=== PATIENT | male | born 1985 | race Hispanic/Latino ===

== ENCOUNTER 2019-02-11 06:03 | Inpatient (IN) | payer OTHER ==
[2019-02-11 06:28] VITALS: BMI 25.7
[2019-02-11] MEDS ORDERED: Morphine 4 MG/ML VIAL IVP STA (06:28)
[2019-02-11] MEDS ORDERED: Sodium Chloride 0.9% 1,000 ML IV STA (06:28)
[2019-02-11] MEDS ORDERED: Morphine 4 MG/ML VIAL ONE (06:30)
--- NOTE | 2019-02-11 06:44 | ED PDOC ---
Lower Extremity Pain/Injury Time Seen by Provider: 02/11/19 06:18 Chief Complaint (Provider): Lower Extremity Problem/Injury History Per: Patient History/Exam Limitations: no limitations Additional Complaint(s): 33 years old male with history of bicuspid aortic valve and vasovagal syncope presents to ER for evaluation of right ankle pain onset this morning. Patient reports he had diarrhea yesterday and states this morning he woke up to go to the bathroom and while standing he felt dizzy and lightheaded and felt like he was going to pass out. He states he tripped and rolled his ankle and believes he fractured it. Patient denies head injury, chest pain, shortness of breath or any other injuries PMD: None provided - Ankle/Foot Description Of Injury: Other (Tripped and rolled ankle) Past Medical History Reviewed: Historical Data, Nursing Documentation, Vital Signs Vital Signs: Last Vital Signs Temp 98.2 F 02/11/19 06:36 Pulse 74 02/11/19 06:36 Resp 18 02/11/19 06:36 BP 98/59 L 02/11/19 06:36 Pulse Ox 100 02/11/19 06:36 - Medical History Other PMH: bicuspid aortic valve and vasovagal syncope - Surgical History Surgical History: No Surg Hx - Family History Family History: States: Unknown Family Hx - Home Medications Home Medications: Ambulatory Orders Medication Instructions Recorded Metoprolol Tartrate [Lopressor] 25 mg PO DAILY 02/11/19 - Allergies Allergies/Adverse Reactions: Allergies Allergy/AdvReac Type Severity Reaction Status Date / Time No Known Allergies Allergy Verified 02/11/19 06:28 Review of Systems ROS Statement: Except As Marked, All Systems Reviewed And Found Negative Constitutional: Negative for: Other (Head injury) Cardiovascular: Negative for: Chest Pain Respiratory: Negative for: Shortness of Breath Musculoskeletal: Positive for: Foot Pain (Right ankle pain) Physical Exam - Reviewed Nursing Documentation Reviewed: Yes Vital Signs Reviewed: Yes - Physical Exam Appears: Positive for: No Acute Distress Head Exam: Positive for: ATRAUMATIC, NORMOCEPHALIC Skin: Positive for: Pallor Eye Exam: Positive for: Normal appearance, EOMI, PERRL ENT: Positive for: Normal ENT Inspection Neck: Positive for: Normal, Painless ROM, Supple Cardiovascular/Chest: Positive for: Regular Rate, Rhythm. Negative for: Murmur Respiratory: Positive for: Normal Breath Sounds. Negative for: Respiratory Distress Gastrointestinal/Abdominal: Positive for: Normal Exam, Soft. Negative for: Tenderness Back: Positive for: Normal Inspection. Negative for: L CVA Tenderness, R CVA Tenderness Extremity: Positive for: Deformity (Obvious to right ankle), Other (Foot externally rotated. Sensation intact, able to wiggle toes. Palpable toes). Negative for: Pedal Edema Neurological/Psych: Positive for: Awake, Alert, Oriented (x3) - Laboratory Results Result Diagrams: 02/11/19 07:02 02/11/19 07:02 - ECG O2 Sat by Pulse Oximetry: 100 (RA) Pulse Ox Interpretation: Normal Medical Decision Making Medical Decision Making: Time: 627 A/P: Ankle fracture or dislocation after presyncopal episode due to vasovagal syncope secondary to dehydration --Type and screen --EKG --BMP --Troponin --CBC --PTT --PT --Morphine 4 mg --Right ankle x-ray 699 Patient signed out to Dr. No, pending ankle x-ray, podiatry consult and labs. Scribe Attestation: Documented by Divya Gu, acting as a scribe for Brennan Little MD. Provider Scribe Attestation: All medical record entries made by the Scribe were at my direction and personally dictated by me. I have reviewed the chart and agree that the record accurately reflects my personal performance of the history, physical exam, medical decision making, and the department course for this patient. I have also personally directed, reviewed, and agree with the discharge instructions and disposition. Disposition - Clinical Impression Clinical Impression: Ankle fracture, Fracture of tibia and fibula - Patient ED Disposition Is Patient to be Admitted: Transfer of Care - Disposition Disposition: Transfer of Care Disposition Time: 07:00 Condition: FAIR Patient Signed Over To: Pete No (pendigng x-ray, podiatry and labs)
[2019-02-11 07:05] LABS: BASO % 0.3 % (0.0-2.0); EOS % 0.1 % (0.0-4.0); HEMOGLOBIN 15.4 g/dL (12.0-18.0); LYMPH # 1.3 K/uL (1.0-4.3); LYMPH % 12.4 % (20.0-40.0); MEAN CELL VOLUME 87.3 fl (80.0-94.0); MEAN CORPUSCULAR HEMOGLOBIN 29.1 pg (27.0-31.0); MEAN CORPUSCULAR HGB CONC 33.4 g/dL (33.0-37.0); MEAN PLATELET VOLUME 9.7 fl (7.2-11.7); MONO # 0.7 K/uL (0.0-0.8); MONO % 6.7 % (0.0-10.0); NEUT # 8.8 K/uL (1.8-7.0); NEUT % 80.5 % (50.0-75.0); RBC 5.28 Mil/uL (4.40-5.90); RED CELL DISTRIBUTION WIDTH 13.5 % (11.5-14.5); WHITE BLOOD COUNT 10.9 K/uL (4.8-10.8)
[2019-02-11 07:10] LABS: PROTHROMBIN TIME 11.9 Seconds (9.8-13.1)
[2019-02-11 07:13] LABS: PARTIAL THROMBOPLASTIN TIME 30.1 Seconds (25.6-37.1)
[2019-02-11 07:15] LABS: BLOOD UREA NITROGEN 19 mg/dl (9-20); CALCIUM 8.9 mg/dL (8.4-10.2); GFR NON-AFRICAN AMERICAN > 60
--- NOTE | 2019-02-11 07:15 | ED PDOC ---
- Laboratory Results Result Diagrams: 02/11/19 07:02 02/11/19 07:02 Lab Results: PT 11.9 Seconds (9.8-13.1) 02/11/19 07:02 INR 1.0 02/11/19 07:02 APTT 30.1 Seconds (25.6-37.1) 02/11/19 07:02 - ECG O2 Sat by Pulse Oximetry: 100 (RA) - Progress ED Course And Treament: 1001: Stable. AAOx3. Pt. seen by podiatry and they will take to OR. Medical Decision Making Medical Decision Making: Time: 07 --Patient is endorsed to provider by Dr. Little, pending XR right ankle, podiatry consult, and lab results. Scribe Attestation: Documented by Lisa Nunn, acting as a scribe for Pete No MD. Provider Scribe Attestation: All medical record entries made by the Scribe were at my direction and personally dictated by me. I have reviewed the chart and agree that the record accurately reflects my personal performance of the history, physical exam, m edical decision making, and the department course for this patient. I have also personally directed, reviewed, and agree with the discharge instructions and disposition. Disposition Counseled Patient/Family Regarding: Studies Performed, Diagnosis - Clinical Impression Clinical Impression: Fracture of tibia and fibula - POA Present On Arrival: Falls Or Trauma - Disposition Disposition: Admitted as In-Patient Disposition Time: 07:00 Condition: FAIR
[2019-02-11] MEDS ORDERED: Lidocaine 1% Inj (20ml) SC ONE (08:39)
[2019-02-11] MEDS ORDERED: Lidocaine 1% Inj (20ml) ONE (08:48)
--- NOTE | 2019-02-11 09:25 | CP.PCM.CON ---
History of Present Illness - History of Present Illness History of Present Illness: Podiatry consult note for Dr. Galicia, 33 years old male with history of bicuspid aortic valve and vasovagal syncope presents to ER for evaluation of dislocated right ankle. Patient is AAOx 3 and in NAD. Patient states he has had diarrhea and when he woke up to use the bathrooom this morning around 5 am immediately felt dizzy and fell. Patient states he does not recall what happened after but he must have tripped and rolled his ankle.Patient denies any other pedal complains. Denies recent f/n/v/sob. States the last time he ate or drank anything was last night. Small sips of water with imodium this morning. PMD: None provided PMhx: bicuspid aortic valve Medications: beta estelita Pshx: none Allergies: NKDA Social hx: denies smoking cigarettes, admits to drinking Past Patient History - Past Social History Smoking Status: Never Smoked - CARDIAC Other/Comment: Bicuspid aortic valve - NEUROLOGICAL Hx Vertigo: Yes - PSYCHIATRIC Hx Substance Use: No - SURGICAL HISTORY Other/Comment: Cyst removed from right shoulder and left upper inner thigh. - ANESTHESIA Hx Anesthesia: Yes Hx Anesthesia Reactions: No Meds Allergies/Adverse Reactions: Allergies Allergy/AdvReac Type Severity Reaction Status Date / Time No Known Allergies Allergy Verified 02/11/19 06:28 Physical Exam - Constitutional Appears: Well, Non-toxic, No Acute Distress - Head Exam Head Exam: ATRAUMATIC, NORMOCEPHALIC - Eye Exam Eye Exam: Normal appearance - ENT Exam ENT Exam: Mucous Membranes Moist - Respiratory Exam Respiratory Exam: Clear to Auscultation Bilateral, NORMAL BREATHING PATTERN - Extremities Exam Additional comments: neurovascular status intact pulses 2/4, mild pedal edema noted about entirety of ankle. CFT < 3 sec to all digits ortho: dislocated ankle joint is noted neuro: gross sensation is intact derm: no open lesions are noted, no erythema, no ecchymosis Results - Vital Signs Recent Vital Signs: Last Vital Signs Temp 98.2 F 02/11/19 06:36 Pulse 74 02/11/19 06:36 Resp 18 02/11/19 06:36 BP 98/59 L 02/11/19 06:36 Pulse Ox 100 02/11/19 07:15 - Labs Result Diagrams: 02/11/19 07:02 02/11/19 07:02 Labs: Laboratory Results - last 24 hr 02/11/19 02/11/19 02/11/19 06:34 06:35 07:02 WBC RBC Hgb Hct MCV MCH MCHC RDW Plt Count MPV Neut % (Auto) Lymph % (Auto) Crockett % (Auto) Eos % (Auto) Baso % (Auto) Neut # (Auto) Lymph # (Auto) Crockett # (Auto) Eos # (Auto) Baso # (Auto) PT INR APTT Sodium 136 Potassium 3.8 Chloride 101 Carbon Dioxide 25 Anion Gap 14 BUN 19 Creatinine 1.0 Est GFR ( Amer) > 60 Est GFR (Non-Af Amer) > 60 POC Glucose (mg/dL) 179 H Random Glucose 142 H Calcium 8.9 Troponin I < 0.0120 Blood Type A POSITIVE Antibody Screen Negative BBK History Checked No verified bt 02/11/19 02/11/19 02/11/19 07:02 07:02 09:16 WBC 10.9 H RBC 5.28 Hgb 15.4 Hct 46.1 MCV 87.3 MCH 29.1 MCHC 33.4 RDW 13.5 Plt Count 211 MPV 9.7 Neut % (Auto) 80.5 H Lymph % (Auto) 12.4 L Crockett % (Auto) 6.7 Eos % (Auto) 0.1 Baso % (Auto) 0.3 Neut # (Auto) 8.8 H Lymph # (Auto) 1.3 Crockett # (Auto) 0.7 Eos # (Auto) 0.0 Baso # (Auto) 0.0 PT 11.9 INR 1.0 APTT 30.1 Sodium Potassium Chloride Carbon Dioxide Anion Gap BUN Creatinine Est GFR ( Amer) Est GFR (Non-Af Amer) POC Glucose (mg/dL) 106 Random Glucose Calcium Troponin I Blood Type Antibody Screen BBK History Checked Assessment & Plan - Assessment and Plan (Free Text) Assessment: 33 y/o male with confirmed NPO status x 12 hours with right ankle fracture dislocation to go to OR this morning with Dr. Galicia for open reduction internal fixation of right ankle PLan pt seen and evaluated in ED Discussed with anesthesia Dr. Purdy and podiatric surgeon Dr. Galicia NPO status confirmed EKG in chart CT head in chart, no acute intracranial pathology Pt to go for ORIF of right ankle at this time H&P in chart
--- NOTE | 2019-02-11 09:44 | RAD ---
Date of service: 02/11/2019 PROCEDURE: Right Ankle Radiographs. HISTORY: ankle fracture COMPARISON: None available. TECHNIQUE: 3 views obtained. FINDINGS: BONES: Have oblique displaced fractures of the distal fibular diaphysis, medial malleolus and posterior malleolus. JOINTS: Ankle mortise maintained. Talar dome intact SOFT TISSUES: Bimalleolar soft tissue swelling and ankle joint effusion. OTHER FINDINGS: None. IMPRESSION: Fracture dislocation involving the distal fibular diaphysis, medial malleolus and posterior malleolus.
--- NOTE | 2019-02-11 09:50 | CT ---
Date of service: 02/11/2019 PROCEDURE: CT HEAD WITHOUT CONTRAST. HISTORY: syncopal episode with possible head injury COMPARISON: None available. TECHNIQUE: Axial computed tomography images were obtained through the head/brain without intravenous contrast. Radiation dose: Total exam DLP = 874.79 mGy-cm. This CT exam was performed using one or more of the following dose reduction techniques: Automated exposure control, adjustment of the mA and/or kV according to patient size, and/or use of iterative reconstruction technique. FINDINGS: HEMORRHAGE: No intracranial hemorrhage. BRAIN: No mass effect or edema. No atrophy or chronic microvascular ischemic changes. VENTRICLES: Unremarkable. No hydrocephalus. CALVARIUM: Unremarkable. PARANASAL SINUSES: Unremarkable as visualized. No significant inflammatory changes. MASTOID AIR CELLS: Unremarkable as visualized. No inflammatory changes. OTHER FINDINGS: None. IMPRESSION: No acute intracranial pathology.
[2019-02-11] MEDS ORDERED: Lidocaine 1% 5ml Abboject ONE (10:01)
[2019-02-11] MEDS ORDERED: Midazolam 2 MG/2 ML VIAL ONE (10:01)
[2019-02-11] MEDS ORDERED: Propofol 10 mg/ml Inj (20 ML) ONE ×2 (10:01→10:48)
[2019-02-11] MEDS ORDERED: Sevoflurane - Inhalation Anesthetic Liq (250 ml) ONE (10:06)
[2019-02-11] MEDS ORDERED: Succinylcholine Chloride 20 mg/ml Syr (5 ml) IV ONE (10:08)
[2019-02-11] MEDS ORDERED: Lidocaine 4% (Laryng-O-Jet) Kit MM ONE (10:09)
[2019-02-11] MEDS ORDERED: Ropivacaine 0.5% 30ML IV ONE (10:31)
[2019-02-11] MEDS ORDERED: Lactated Ringer's 1,000 ML IV ONE (10:45)
[2019-02-11] MEDS ORDERED: Esmolol 100 mg/10ml Inj IV ONE (11:32)
[2019-02-11] MEDS ORDERED: Bupivacaine 0.5% Inj(30mL) ONE (12:58)
[2019-02-11] MEDS ORDERED: Bupivacaine 0.5% 50 ML IJ ONE (13:00)
[2019-02-11] MEDS ORDERED: Oxycodone/Acetaminophen 5/325 mg Tab PO PRN ×2 (13:48)
--- NOTE | 2019-02-11 13:53 | PCM.SURG1 ---
Surgeon's Initial Post Op Note - Surgeon's Notes Surgeon: Dominic Galicia Receiver Stocker: Chin Mehta Patel, Sheehna, Shah Type of Anesthesia: General LMA, Local Anesthesia Administered By: Dr. Purdy Pre-Operative Diagnosis: right ankle trimalleolar fracture, dislocated Operative Findings: see dictation. injectibles: 10 cc saphenous nerve block .5% marcaine plain. materials- 2-0 vicryl, 3-0 vicryl, 4-0 monocryl. 2.7/3.5 VA LCP synthes fibular plate Post-Operative Diagnosis: tiny Operation Performed: open reduction and internal fixation right trimalleolar ankle fracture Specimen/Specimens Removed: none Estimated Blood Loss: EBL {In ML}: 25 Blood Products Given: N/A Drains Used: No Drains Post-Op Condition: Good Date of Surgery/Procedure: 02/11/19 Time of Surgery/Procedure: 13:54
[2019-02-11] MEDS ORDERED: HYDROmorphone 0.5 mg/0.5 ml ISec IVP PRN (14:01)
--- NOTE | 2019-02-11 14:06 | PCM.ANESB2 ---
Popliteal Nerve Block - Popliteal Nerve Block Date of Procedure: 02/11/19 Anesthesiologist: Dr. Purdy Pre-Procedure Diagnosis: S/P ORIF right ankle fracture Post-Procedure Diagnosis: S/P ORIF right ankle fracture Procedure Performed: Popliteal Nerve Block Right - Procedure Popliteal Nerve Block: This procedure was explained to the patient that it is for post-operative pain management. Consent was obtained after a thorough discussion with the patient regarding the benefits and possible complications of local anesthetic block of the sciatic nerve at the popliteal level. The patient was brought to the operating room and standard monitors are applied. Time-out was held with the circulating nurse to confirm the correct surgery and the appropriate block. After the surgery while still under general anesthesia, patient's operative leg was gently raised and supported and the groove in between the biceps femoris and vastus lateralis muscles was carefully palpated. The skin approximately 8cm above the popliteal crease was then marked. The ultrasound transducer was then applied to the posterior thigh approximately 8cm above the popliteal crease in the transverse plane and the sciatic nerve before its division was visualized lateral to the popliteal artery and in between the bicep femoris and semimembranosus/semitendinosus muscles. After identification, the lateral portion of the thigh was prepped with Chloraprep solution. At this point, a # 20 gauge Stimuplex insulated 4 inch needle was inserted into pre-marked area and advanced in a perpendicular direction. The needle was inserted above the ultrasound transducer in-plane towards the sciatic nerve in a [id number] direction. Needle advancement was performed carefully under direct ultrasound visualization. Nerve stimulator was used and dorsiflexion of the right foot was elicited at a current of 0.33 MA. After repeated negative aspiration, 5cc of 0.5% Ropivacaine was injected and this was flowed with 20cc of 0.5% Ropivacaine. Under ultrasound guidance the local anesthetics were observed surrounding sciatic nerve . The needle was removed intact and sterile dressing was applied. The patient tolerated the popliteal nerve block well with stable vital signs and was subsequently ttransported to recovery room.
[2019-02-11] MEDS ORDERED: Lactated Ringer's 1,000 ML IV SCH (14:15)
[2019-02-11 17:35] VITALS: BP 126/72; PULSE 82; RESP 18; TEMP 98.6
[2019-02-11 21:25] VITALS: O2SAT 100
--- NOTE | 2019-02-12 18:59 | PCM.OP ---
Operative Report - Operative Report Date of Surgery/Procedure: 02/11/19 Time of Surgery/Procedure: 11:00 Surgeon: Dr. Dominic Galicia Sand Filler: Hannah Mehta MD; PGYs:Macario Luther Dhagash Patel, Disha Shah Anesthesia/Sedation: General, regional (popliteal) nerve block, local administered by Dr. Purdy Pre-Operative Diagnosis: right dislocated trimalleolar ankle fracture Post-Operative Diagnosis: same Indication for Surgery: The patient is a 33 year-old male with the above diagnoses. The patient has exhausted conservative treatment at this time and now requires surgical intervention. The patient signed the consent after careful explanation of risks, benefits, complications and alternatives for surgical procedure. No guarantees were given nor implied. 2 grams of Ancef IV were given to the patient half an hour prior to the procedure. NPO status was confirmed prior to taking patient to the operating room. Operative Findings: The patient was brought in to the operating room and placed on the operating room table in the supine position. A well-padded pneumatic thigh tourniquet was applied in the suprapatellar position. After induction of general anesthesia, the patient's right lower extremity was then prepped and draped in usual sterile manner. An esmarch was utilized to exsanguinate the patient's right lower extremity. The pneumatic thigh tourniquet was then inflated to 350 mmHg and the procedure began. Procedure/Operation Description: Procedure #1: Open reduction with internal fixation of dislocated fibula fracture At this time, attention was directed to the lateral aspect of the right ankle where a dislocated fibular fracture was present. At this time, via the use of a #15 blade, an approximately 10 cm in length linear incision was created over the lateral aspect of the fibula of the right lower extremity. The incision was carried from proximal to distal to the distal tip of the lateral malleolus. The incision was deepened through subcutaneous tissues, with all neurovascular structures retracted, ligated and bovied as necessary. A wet sponge was used to evacuate all hematoma from the fracture site. Next, a sterile 15 blade was used to make a linear incision along the central aspect of the fibula to incise the periosteum. Using a Tariq elevator, the periosteum was dissected free from its osseous attachments and reflected anteriorly and posteriorly. An oblique fracture was noted at this time, oriented from proximal posterior to distal an terior. Upon dissection of the surrounding soft tissue from the fracture site, the fracture fragment was distracted distally and a bone curette was utilized to clean and remove hemorrhagic tissue and coagulated blood from the fracture site. The surgical site was then copiously irrigated with normal sterile. At this time via the use of a bone clamp and distal and proximal distraction, the fracture was placed in an anatomical corrected position with noted increased length to the fibula and uatsdin of the ankle mortise. Fluoroscopy was used to confirm the appropriate position and length of the fibula. At this time, two 3.5mm Synthes cortical screws (18mm, 20mm) were placed across the fracture site in lag technique in order to allow for interfragmentary screw fixation. Upon completion of this procedure, the bone clamped was removed. It was noted that good fixation had been achieved across the fracture site. At this time, a Synthes VA-LCP 2.7/3.5mm fibular plate was utilized at the anterolateral aspect of the which was fixated via the use of eight 2.7mm locking screws (14mmx2;16mmx5; 20mm) and one 3.5 mm (18mm) cortical screw. Upon completion of the fibular reduction and fixation, the surgical site was copiously irrigated with normal sterile saline. The periosteum was reapproximated with 3-0 Vicryl in a simple suture pattern. The subcutaneous tissues were reapproximated with 4-0 Vicryl in a running interlocking suture pattern. The skin was reapproximated and coapted with 4-0 Monocryl in a continuous running suture technique. Procedure #2: Open reduction and internal fixation of medial malleolar fracture At this time, attention was directed to the medial aspect of the right ankle at the level of the medial malleolus, where a displaced distal malleolar fracture was present. At this time, via the use of a #15 blade, a 5cm linear longitudinal incision was created from superior to inferior. The incision was deepened through subcutaneous tissues using dissecting scissors and a hemostat. Care was taken to identify and retract all vital neurovascular structures. A sterile 15 blade was used to reflect the periosteum off the bone in a distal direction, strictly at the site of the fracture. At this time, the medial malleolus was placed in an anatomical reduced position and temporarily fixated via the use of the 4.0 mm cannulated screw guide wire. A second K-wire was placed posterior to the initial wire to stabilize the fracture site. C-arm was utilized at this time to insure adequate positioning of the medial malleolar guide wires. It was noted that good position was present. At this time, via the use of AO technique, a Synthes 4.0 mm x 48 mm cannulated screw was inserted across the medial malleolar fracture site. Upon removal of the guidewires, it was noted that good stable fixation had been achieved with the 3.5 mm screw. The surgical site was then copiously irrigated with normal sterile saline. The periosteum was reapproximated with 3-0 Vicryl in a simple suture pattern. The subcutaneous tissues were reapproximated with 4-0 Vicryl in a running interlocking suture pattern. The skin was reapproximated and coapted with 4-0 Monocryl in a continuous running suture technique. Procedure #3: Open reduction and internal fixation of posterior malleolus fracture Attention was then directed to the anterior aspect of the right ankle. It is of not on the lateral fluoroscopic image that there was evidence of posterior malleolar fracture fragment with mild posterior displacement of the fracture fragment. Using a sterile 15 blade, a linear 1cm longitudinal incision was made over the distal anterior tibia. The incision was deepened using blunt dissection down to the level of subcutaneous tissues. At this time, a guidewire from the Synthes 4.0 cannulated screw set was driven from anterior to posterior. The position was confirmed under fluoroscopy and noted to adequately capture the fracture fragment. At this time, a 4.0 short threaded 38 mm Synthes cannulated screw was inserted under AO technique in lag fashion. Position of the screw was confirmed under fluoroscopy and noted to be in good alignment and across the fracture site. The incision site was copiously irrigated with sterile saline. The subcutaneous tissues were reapproximated with 4-0 Vicryl in a running interlocking suture pattern. The skin was reapproximated and coapted with 4-0 Monocryl in a continuous running suture technique. Postoperative bandages included steri strips, saline-soaked gauze, 4x4s, leandra, kerlix, Webril and a bi-valved fiberglass cast. It is of note that Dr. Hannah Mehta's expertise and assistance was vital to the successful reduction and repair of this patient's trimalleolar ankle fracture. His presence was needed to ensure the best possible surgical outcome. Estimated Blood Loss: 25 mL Complications: None Discharge & Condition: The patient tolerated the anesthesia and procedure well and was escorted to the recovery room with vital signs stable and neurovascular status intact to the right lower extremity. This patient will follow up with Dr. Galicia in his office on an outpatient basis. He is to remain non-weightbearing to the right lower extremity with bi-valved cast and crutches.
--- NOTE | 2019-02-12 21:28 | CARD ---
APPROVED REPORT Date of service: 02/11/2019 EKG Measurement Heart [id number] <Conclusion> Normal sinus rhythm Normal Electrocardiogram
--- NOTE | 2019-02-13 08:38 | RAD ---
Date of service: 02/11/2019 PROCEDURE: Intraoperative Fluoroscopy. HISTORY: RIGHT ANKLE FINDINGS: Fluoroscopic assistance was provided for ORIF distal fibular/lateral malleolar and medial malleolar fractures. Please refer to the operative report from RUDI Daley. 32 sec of fluoro time was utilized with a cumulative radiation dose of 0.72 mGy.
== END 2019-02-11 19:10 | disposition home or self-care (01) | DRG 493 ==
LOC: H.ER 06:03 → H.ERHOLD 10:01 → H.MEDSURG1 15:35
PROVIDERS: ADMIT Podiatrist; ATTEND Podiatrist
PROC: 0QSJ04Z Reposition Right Fibula with Internal Fixation Device, Open Approach (ICD-10-PCS; principal; 2019-02-11 10:30)
PROC: 3E0T3BZ Introduction of Anesthetic Agent into Peripheral Nerves and Plexi, Percutaneous Approach (ICD-10-PCS; 2019-02-11 10:30)
DX: S82.491A Other fracture of shaft of right fibula, initial encounter for closed fracture (principal); Q23.1 Congenital insufficiency of aortic valve; E86.0 Dehydration; W01.0XXA Fall on same level from slipping, tripping and stumbling without subsequent striking against object, initial encounter; Y93.9 Activity, unspecified; Y92.9 Unspecified place or not applicable; Y99.9 Unspecified external cause status; Z79.899 Other long term (current) drug therapy